=== PATIENT | female | born 1940 | race Caucasian/White ===

== ENCOUNTER 2017-04-24 21:51 | Emergency (ER) | payer MEDICARE ==
[~2017-04-24] VITALS: Ht 152.4 cm; Wt 54.5 kg
[2017-04-24 22:04] VITALS: BP 185/79; PULSE 102; RESP 18; O2SAT 97
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
[2017-04-24] MEDS ORDERED: IBUP400T22 PO (23:10)
[2017-04-24] MEDS ORDERED: FAMO20T PO (23:10)
[2017-04-24] MEDS ORDERED: TdaP Vaccine 0.5 mL Inj IM ONE (23:25)
[2017-04-24 23:36] VITALS: BP 150/73; PULSE 95; O2SAT 96
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
== END 2017-04-24 23:36 | disposition home or self-care (01) ==
LOC: SED 21:51
DX: S92.535A Nondisplaced fracture of distal phalanx of left lesser toe(s), initial encounter for closed fracture (principal); S97.82XA Crushing injury of left foot, initial encounter; S90.512A Abrasion, left ankle, initial encounter; V03.10XA Pedestrian on foot injured in collision with car, pick-up truck or van in traffic accident, initial encounter; Y93.89 Activity, other specified; Y92.89 Other specified places as the place of occurrence of the external cause; Y99.8 Other external cause status; R26.2 Difficulty in walking, not elsewhere classified; Z87.01 Personal history of pneumonia (recurrent); Z23 Encounter for immunization; Z88.0 Allergy status to penicillin